=== PATIENT | male | born 1970 | race Caucasian/White ===

== ENCOUNTER → 2022-09-03 12:39 | Outpatient (BNVA) | payer OTHER, SELFPAY | PROVIDERS: Visit Provider Emergency Medicine | DX: J02.9 Acute pharyngitis, unspecified (principal) | CPT/HCPCS: 87071; 87880 ==

== ENCOUNTER → 2025-02-12 09:11 | Outpatient (BNVA) | payer OTHER, SELFPAY | PROVIDERS: Visit Provider Specialist | DX: M79.642 Pain in left hand (principal); M79.641 Pain in right hand; M65.341 Trigger finger, right ring finger; M65.331 Trigger finger, right middle finger; Z01.818 Encounter for other preprocedural examination | CPT/HCPCS: 36415; 73130; 80053; 81001; 85025 ==

== ENCOUNTER 2025-02-15 09:13 | Day surgery (SDC) | payer SELFPAY ==
[2025-02-15] VITALS (10 sets, daily range): BP systolic 94–128; BP diastolic 59–99; PULSE 72–97; RESP 11–18; TEMP 36.1–36.6; O2SAT 91–98
--- NOTE | 2025-02-15 10:00 | P.HPUD_ITS ---
Surgery/Procedure H&P Update DATE OF PROCEDURE: February 15, 2025 DATE H&P PERFORMED: 02/12/25 H&P UPDATE INFORMATION: I have reviewed H&P completed within last 30 days, I have examined patient prior to procedure, No changes to prior documentation, H&P is in [facility] EMR on date indicated and Risks and benefits of the procedure reviewed PLANNED PROCEDURE: Operation Date: 02/15/25 10:50 Proposed Procedures p RIGHT Long Finger and Right Ring Finger Trigger Finger Release(Right) - Krista Worley MD Related Problem List Diagnoses (1) Trigger finger, right middle finger: (2) Trigger finger, right ring finger:
[2025-02-15] MEDS: acetaminophen 1,000 MG/100 ML PIGGYBACK 400 MG IV (10:01)
[2025-02-15] MEDS: sodium chloride 0.9% 1,000 ML 30 ML IV (10:01)
[2025-02-15] MEDS: CELEcoxib 200 mg Capsule 400 MG PO (10:02)
[2025-02-15] MEDS: gabapentin 300 mg Capsule PO (10:02)
--- NOTE | 2025-02-15 10:36 | P.ANESASSM_ITS ---
Pre-Anesthetic Assessment Height/Weight: Height 1.83 m Weight 157.85 kg Temp Pulse Resp BP Pulse Ox O2 Del Method 97.7 F 72 16 128/97 98 Room Air 02/15/25 09:40 02/15/25 09:40 02/15/25 09:40 02/15/25 09:40 02/15/25 09:40 02/15/25 09:40 Operation Date: 02/15/25 10:50 Proposed Procedures p RIGHT Long Finger and Right Ring Finger Trigger Finger Release(Right) - Krista Worley MD Familial anesthetic complications: None Was Beta Sharad taken within 24 hours: N/A Was Clonidine taken within 24 hours: N/A Last intake: Intake Last Liquid Date 02/14/25 Last Liquid Time 21:00 Last Solid Date 02/14/25 Last Solid Time 18:00 Social No alcohol and No tobacco Exam alert, oriented x 3, clear to auscultation bilaterally and regular rate & rhythm Airway Mallampati: Class IV Dentition: full Comments: Comments: large neck circumference Pulmonary Sleep Apnea Metabolic Morbid Obesity Anesthetic Plan ASA status: 3 Anesthesia: Choice Risk of > 500 ml blood loss (7ml/kg in children): No Medications/Allergies Home Medications ?Medication ?Instructions ?Recorded ?Confirmed ?Last Taken ?Type Men Under 50 Multivitamin 1 tab PO DAILY 02/14/25 05/0 11/1102/13/25 History Allergies Allergy/AdvReac Type Severity Reaction Status Date / Time No Known Allergies Allergy Verified 02/14/25 16:25 Current Medications Generic Name Dose Route Start Last Admin Trade Name Freq PRN Reason Stop Dose Admin Sodium Chloride 1,000 mls @ 30 mls/hr 02/15/25 09:30 02/15/25 10:01 Sodium Chloride 0.9% IV 30 mls/hr .Q24H DERREK Administration PFSH Anesthesia Social History Smoking and tobacco/nicotine status: never used tobacco/nicotine Second hand smoke exposure: No Alcohol intake: current Alcohol intake frequency: holidays/special occasions only Substance/Drug Use: never
[2025-02-15] MEDS: ceFAZolin 3,000 MG in sodium chloride 0.9% (plus) 100 ML 200 MG IV (11:41)
[2025-02-15] MEDS: BUPivacaine 0.5% INJ 30 mL XX (12:06)
--- NOTE | 2025-02-15 12:59 | P.OP_ITS ---
Operative Report Date of procedure: February 15, 2025 Pre-op diagnosis: Trigger finger right long and ring fingers Post-op diagnosis: Trigger finger right long and ring fingers Post-op findings: Fluid around the flexor tendons of the ring and long fingers, tightness of the A1 pulleys. Procedure done: Release right ring and long finger trigger fingers Implants: None Specimens removed/disposition: None Pathology: None Surgeon: Krista Worley MD Instructional Material Director: None Anesthesia: General (Per LMA, ASA 3) Estimated blood loss (mL): 2 Tourniquet time (min): 24 (At 250 mmHg) IV fluids (mL): 500 Urine output (mL): 0 (No Whitaker) Complications: None Findings: Significant tightness and fluid surrounding the flexor tendons of the ring and long fingers consistent with trigger finger of these 2 fingers. Condition: stable Disposition: PACU (Then return to same-day surgery for discharge to home) Brief History: This 54-year-old gentleman presented to my office complaining of triggering in both the left and right hand. On the right hand, he had triggering of the long and ring fingers. As this was the more symptomatic for him. He wished to proceed with trigger finger release of the right hand. Risks and complications of surgery were discussed with him. Consents were signed and questions were answered. On the morning of surgery, he was given further opportunity for questions and to review the surgical procedure. Procedure: Patient was brought to the operating theater. He was placed on the operating room table. A general anesthesia per LMA, ASA 3, was administered uneventfully. A tourniquet was placed high on the arm and was elevated following exsanguination of the arm. Tourniquet time was 24 minutes at 250 mmHg. Surgical pause was performed prior to commencement of the surgical procedure. At the time of the surgical pause we identified the site and side of surgery. We also identified the patient's identity and appropriate administration of IV antibiotics, Ancef 3 g. Following the surgical pause, an incision was made along the distal palmar crease beneath the long and ring fingers. Dissection continued through the skin and subcutaneous tissues using a scalpel. Blunt dissection was then utilized to spread soft tissues and allow access to the A1 pulleys. Each A1 ed was identified. Each was then incised longitudinally and sharply using a knife. This was accomplished without difficulty and atraumatically. Once the A1 pulleys were released, tendons were brought up out of the wound and evaluated. There was fluid around the tendons, and there was some irregularity of the tendinous surfaces consistent with abrasion. Tendons were returned to normal position. We then irrigated the wound and subsequently closed it with 3-0 nylon with an interrupted mattress type suture. Following closure of the wound, the wound was injected with bupivacaine into the subcutaneous tissues as a local anesthetic. Sterile dressing was then placed consisting of Dermabond, OpSite, fluffed fluffs, sterile soft roll, and an Vimal wrap. The patient was returned to recovery in satisfactory condition. [] will be discharged home to follow-up with me in the office. There were no complications and no specimens. Related Problem List Diagnoses (1) Trigger finger, right middle finger: (2) Trigger finger, right ring finger:
--- NOTE | 2025-02-15 13:50 | ANE.PACU2 ---
Inpatient post-anesthesia follow up: Airway intact: Yes Vital signs: Temperature 97 F Pulse Rate 88 Respiratory Rate 18 Blood Pressure 118/79 Pulse Oximetry 95 Oxygen Delivery Me thod Room Air Oxygen Flow Rate 3 Fraction of Inspir ed Oxygen Hydration adequate: Yes Nausea and vomiting: No Pain level: 1 Mental status: Baseline
== END 2025-02-15 13:50 | disposition home or self-care (01) ==
PROVIDERS: PCP Family Medicine; Visit Provider Specialist
PROC: (CPT 26055; principal; 2025-02-15 10:40)
DX: M65.331 Trigger finger, right middle finger (principal); M65.341 Trigger finger, right ring finger; E66.01 Morbid (severe) obesity due to excess calories; Z68.42 Body mass index [BMI] 45.0-49.9, adult
CPT/HCPCS: 26055 ×2; J0131; J0690; J1100; J2250; J2405; J2704; J3010; J3490; J7030; J9999

== ENCOUNTER 2025-04-03 08:45 | Day surgery (SDC) | payer SELFPAY ==
[2025-04-03] VITALS (9 sets, daily range): BP systolic 101–156; BP diastolic 74–99; PULSE 79–101; RESP 15–18; TEMP 36.1–36.6; O2SAT 94–99; BMI 46.0
[2025-04-03] MEDS: acetaminophen 1,000 MG/100 ML PIGGYBACK 400 MG IV (09:22)
[2025-04-03] MEDS: CELEcoxib 200 mg Capsule 400 MG PO (09:22)
[2025-04-03] MEDS: gabapentin 300 mg Capsule PO (09:22)
[2025-04-03] MEDS: sodium chloride 0.9% 1,000 ML 30 ML IV (09:50)
--- NOTE | 2025-04-03 10:15 | ANES.PREANE2 ---
Pre-Anesthetic Assessment Height/Weight: Height 6 ft Weight 340 lb Temp Pulse Resp BP Pulse Ox O2 Del Method 97.6 F 84 17 138/99 95 Room Air 04/03/25 08:58 04/03/25 08:58 04/03/25 08:58 04/03/25 08:58 04/03/25 08:58 04/03/25 08:59 Preop Diagnosis: Trigger finger Operation Date: 04/03/25 10:20 Proposed Procedures p RING FINGER TRIGGER FINGER RELEASE(Left) - Krista Worley MD Was Beta Sharad taken within 24 hours: N/A Was Clonidine taken within 24 hours: N/A Last intake: Intake Last Liquid Date 04/02/25 Last Liquid Time 21:00 Last Solid Date 03/23/25 Last Solid Time 09:00 Social No alcohol and No tobacco Exam alert, oriented x 3, clear to auscultation bilaterally and regular rate & rhythm Airway Submandibular: Other (Large neck circumference) Cervical ROM: within normal limits Mallampati: Class III Dentition: full Anesthetic Plan ASA status: 3 Anesthesia: General Other: No prior issues with anesthesia NPO since yesterday evening BMI 46 Thinks he might have sleep apnea, never been diagnosed Denies any cardiac issues METs greater than 4 Plan for general anesthesia Medications/Allergies Home Medications ?Medication ?Instructions ?Recorded ?Confirmed ?Last Taken ?Type Men Under 50 Multivitamin 1 tab PO DAILY 02/14/25 04/02/25 04/02/25 History Allergies Allergy/AdvReac Type Severity Reaction Status Date / Time No Known Allergies Allergy Verified 04/03/25 08:54 Current Medications Generic Name Dose Route Start Last Admin Trade Name Alexus PRN Reason Stop Dose Admin Sodium Chloride 1,000 mls @ 30 mls/hr 04/03/25 10:00 04/03/25 09:50 Sodium Chloride 0.9% IV 04/04/25 09:59 30 mls/hr .Q24H DERREK Administration PFSH Anesthesia Social History Smoking and tobacco/nicotine status: never used tobacco/nicotine Second hand smoke exposure: No Alcohol intake: current Alcohol intake frequency: holidays/special occasions only Substance/Drug Use: never
[2025-04-03] MEDS: ceFAZolin 3,000 MG in sodium chloride 0.9% (plus) 100 ML 200 MG IV (10:18)
--- NOTE | 2025-04-03 10:25 | W.PM.OPSUD ---
Surgery/Procedure H&P Update DATE OF PROCEDURE: April 03, 2025 DATE H&P PERFORMED: 03/28/25 H&P UPDATE INFORMATION: I have reviewed H&P completed within last 30 days, I have examined patient prior to procedure, No changes to prior documentation, H&P is in [facility] EMR on date indicated and Risks and benefits of the procedure reviewed PREOP DIAGNOSIS: Left ring Trigger finger PLANNED PROCEDURE: Operation Date: 04/03/25 10:20 Proposed Procedures p RING FINGER TRIGGER FINGER RELEASE(Left) - Krista Worley MD Related Problem List Diagnoses (1) Trigger finger, left ring finger:
[2025-04-03] MEDS: BUPivacaine 0.5% INJ 30 mL XX (10:48)
--- NOTE | 2025-04-03 11:03 | P.OP_ITS ---
Operative Report Date of procedure: April 03, 2025 Pre-op diagnosis: Left ring finger trigger finger Post-op diagnosis: Left ring finger trigger finger Post-op findings: Significant compression across the flexor tendons of the left ring finger Procedure done: Left ring trigger finger release Implants: None Specimens removed/disposition: None Pathology: None Surgeon: Krista Worley MD It Applications Analyst: None Anesthesia: General (Per LMA, ASA 3) Estimated blood loss (mL): 2 Tourniquet time (min): 13 (At 250 mmHg) IV fluids (mL): 600 Urine output (mL): 0 (No Whitaker) Complications: None Findings: Significant inflammation and thickening of the A1 ed with compression on the ring finger flexor tendons Condition: stable Disposition: PACU (Then return to same-day surgery for discharge to home) Brief History: This 54-year-old gentleman initially presented to the office complaining of triggering in both the right and left hands. He recently underwent release of his right long and ring finger trigger fingers on February 15. He presented to the office wishing to proceed with left trigger finger release. Risks and complications were again discussed with the patient. Consents were signed and questions were answered. The patient was again seen the morning of surgery and given opportunity to ask questions further. His was also present. Procedure: Patient was brought to the operating theater. He remained on his gurney for the procedure. A general anesthesia per LMA, ASA 3, was administered uneventfully. A tourniquet was placed high on the arm and was elevated following exsanguination of the arm. Tourniquet time was 13 minutes at 250 mmHg. Surgical pause was performed prior to commencement of the surgical procedure. At the time of the surgical pause we identified the site and side of surgery. We also identified the patient's identity and appropriate administration of IV antibiotics, Ancef 3 g. Following the surgical pause, an incision was made along the distal palmar crease beneath the ring finger. Dissection continued through the skin and subcutaneous tissues using a scalpel. Blunt dissection was then utilized to spread soft tissues and allow access to the A1 ed. The A1 ed was then incised longitudinally and sharply using a knife. This was accomplished without difficulty and atraumatically. Once the A1 ed was released, tendons were brought up out of the wound and evaluated. There was fluid around the tendons, and there was some irregularity of the tendinous surfaces consistent with abrasion. Tendons were returned to normal position. We then irrigated the wound and subsequently closed it with 3-0 nylon with an interrupted mattress type suture. Following closure of the wound, the wound was injected with bupivacaine into the subcutaneous tissues as a local anesthetic. Sterile dressing was then placed consisting of Dermabond, OpSite, fluffed fluffs, sterile soft roll, and an Vimal wrap. The patient was returned to recovery in satisfactory condition. He will be discharged home to follow-up with me in the office. There were no complications and no specimens. Related Problem List Diagnoses (1) Trigger finger, left ring finger:
[2025-04-03] MEDS: HYDROcodone-acetaminophen 5-325 mg Tablet 1 TAB PO (11:54)
--- NOTE | 2025-04-03 12:00 | ANE.PACU2 ---
Inpatient post-anesthesia follow up: Airway intact: Yes Vital signs: Temperature 98 F Pulse Rate 81 Respiratory Rate 17 Blood Pressure 133/89 Pulse Oximetry 96 Oxygen Delivery Me thod Room Air Oxygen Flow Rate 6 Fraction of Inspir ed Oxygen Hydration adequate: Yes Nausea and vomiting: No Pain level: 1 Mental status: Baseline
== END 2025-04-03 12:00 | disposition home or self-care (01) ==
PROVIDERS: PCP Family Medicine; Visit Provider Specialist
PROC: (CPT 26055; principal; 2025-04-03 10:10)
DX: M65.342 Trigger finger, left ring finger (principal); Z68.42 Body mass index [BMI] 45.0-49.9, adult
CPT/HCPCS: 26055; A4216; J0131; J0690; J1100; J2250; J2405; J2704; J3010; J3490; J7030; J9999